=== PATIENT | male | born 1985 | race Caucasian/White ===

== ENCOUNTER 2017-05-15 01:58 | Emergency (ER) | payer MEDICARE, SELFPAY | END 2017-05-15 05:26 | disposition home or self-care (01) | PROVIDERS: Emergency Provider Emergency Medicine; Family Provider Emergency Medicine; Visit Provider Emergency Medicine | DX: H53.8 Other visual disturbances (principal); G44.209 Tension-type headache, unspecified, not intractable; Z90.49 Acquired absence of other specified parts of digestive tract; H54.40 Blindness, one eye, unspecified eye | CPT/HCPCS: 70450; 99282 ==

== ENCOUNTER → 2017-06-05 09:21 | Outpatient (CLI) | payer MEDICARE, SELFPAY ==
[2017-06-05 13:38] LABS: Amphetamine/Metha Screen,Urine Negative ng/mL (<1000); Barbiturates Screen,Urine Negative ng/mL (<200); Benzodiazepines Screen,Urine Negative ng/mL (200); Cannabinoid Screen,Urine Negative ng/mL (<50); Cocaine Screen,Urine Negative ng/g (<300); Methadone Screen,Urine Negative ng/mL (<300); Opiate Screen,Urine Positive ng/mL (<300); Phencyclidine Screen,Urine Negative ng/mL (<25)
== END ==
PROVIDERS: Visit Provider Emergency Medicine
DX: Z79.899 Other long term (current) drug therapy (principal)
CPT/HCPCS: 80305